=== PATIENT | female | born 1950 | race African-American/Black ===

== ENCOUNTER → 2017-12-02 | Day surgery (SDC) | payer MEDICARE, OTHER ==
[~2017-12-02] MED LIST: CAL1TABL7 PO; CERT400S SQ; CYAN2000 PO; HYDR12.53 PO; IV RINGERS,LACTATED 1000ML 1,000 ML IV SCH; LEVO75TA5 PO; LOSA100T7 PO; MULT-697 PO; PANT20TA2 PO; PROPOFOL 40 ML IV ONE; TRAM50TA PO
[2017-12-02 10:03] VITALS: BP 114/64
--- NOTE | 2017-12-02 10:55 | PREOP HP ---
DATE OF SERVICE: 12/02/2017 REQUESTING PHYSICIAN: Mello Fonseca DO. PRIMARY CARE PHYSICIAN: Mello Fonseca DO. REASON FOR PROCEDURE: Dysphagia. HISTORY OF PRESENT ILLNESS: This is a 67-year-old female with a history of dysphagia. She has been dilated by Dr. Angelica Ferguson twice in 2012. She recently had an episode of a food impaction that resolved spontaneously in [facility] ER. PAST MEDICAL HISTORY: 1. Sleep apnea. 2. Anemia. 3. Esophageal stricture. 4. Gastric bypass. FAMILY HISTORY: No colon cancer. MEDICATIONS: 1. Hydrochlorothiazide. 2. Losartan. 3. Protonix. 4. . 5. Vitamin . 6. Citracal. 7. Levothyroxine. 8. Centrum. 9. Tramadol. REVIEW OF SYSTEMS: A 13-point review of systems was done. It was positive as per HPI, otherwise negative. PHYSICAL EXAMINATION: GENERAL: She is an obese female in no apparent distress. HEENT: Oropharynx is clear. CARDIOVASCULAR: S1, S2. LUNGS: Clear. ABDOMEN: Active bowel sounds, soft, nontender, nondistended. EXTREMITIES: No edema. NEUROLOGIC: Awake, alert and oriented x 3. ASSESSMENT AND PLAN: Dysphagia. Plan for upper endoscopy with dilation. The risks and benefits of the procedure including bleeding, perforation, non-diagnosis and sedation were explained. She has agreed to proceed. Thank you for allowing me to participate in the care of this patient. SERENA MORATAYA MD DR: ANA LILIA/marc JOB#: [id number] / [id number]
--- NOTE | 2017-12-07 09:06 | PATHOLOGY ---
[facility] Accession Number: [id number] . 01 Material submitted: . PART A: SMALL BOWEL BIOPSY PART B: GASTRIC FUNDUS BIOPSY PART C: ESOPHAGEAL STENOSIS AT 34CM . 01 Clinical history: . Dysphagia . 02 Diagnosis: A. Small bowel biopsy: - Focal moderate nonspecific chronic jejunitis. . B. Gastric biopsy, fundus: - Mild to focal moderate superficial chronic gastritis. . C. Esophageal biopsy, esophageal stenosis at 34 cm: - Segments of hyperplastic squamous esophageal mucosa consistent with reflux esophagitis. [facility]/12/07/2017 . 02 Comment: Sections of the small bowel biopsy reveal two segments of small intestinal mucosa. One of the biopsy segments appears relatively normal. The other biopsy segment shows preservation of the villous architecture with moderate chronic inflammation within the lamina propria. There are focal intraepithelial lymphocytes. The histologic findings are nonspecific. Sections of the gastric fundus biopsy show [id number]-ta-thdac-moderate superficial chronic inflammation. Properly-controlled immunoperoxidase stain for Helicobacter is negative for Helicobacter organisms. Sections of the esophageal stenosis at 34 cm biopsy reveal segments of hyperplastic squamous esophageal mucosa. There are intraepithelial neutrophils and chronic inflammatory cells. The findings are consistent with reflux esophagitis. There is no evidence of Soriano's change, dysplasia, or malignancy. . Special stain (B1): Immunoperoxidase stain for Helicobacter . (JPM:mml; 12/03/17) . 02 Electronically signed: . Kenan Christensen MD, Pathologist NPI- [id number] . 01 Gross description: . A. Received in formalin labeled "Fe, Leresa, small bowel BX," are 2 segments of watson soft tissue measuring 0.7 x 0.2 x 0.2 cm in aggregate dimensions and ranging from 0.3 to 0.4 cm in maximum dimension. The specimen is submitted entirely in cassette A1. . B. Received in formalin labeled "Juanito Miramontes, gastric fundus BX," are 2 segments of watson soft tissue measuring 0.7 x 0.3 x 0.2 cm in aggregate dimensions and ranging from 0.3 to 0.4 cm in maximum dimension. The specimen is submitted entirely in cassette B1. . C. Received in formalin labeled "Juanito Miramontes, esophageal stenosis at 34 cm," are 2 segments of watson soft tissue measuring 0.8 x 0.3 x 0.2 cm in aggregate dimensions and ranging from 0.3 to 0.5 cm in maximum dimension. The specimen is submitted entirely in cassette C1. (TSD; 12/02/2017) TOB/TOB . 02 Pathologist provided ICD-10: K52.9, K29.50, K21.0 . 02 CPT . 690589, [id number], [id number], [id number] Performed at: 01 [facility] [address], [place] [id number] MD Wally Patricia MD Phone: [phone] Performed at: 02 [facility] [address] [place], [place] [id number] MD Kenan Christensen MD Phone: [phone]
== END ==
LOC: SURG 08:26
PROVIDERS: ATTEND Internal Medicine Gastroenterology
DX: K22.2 Esophageal obstruction (principal); K29.30 Chronic superficial gastritis without bleeding; K52.89 Other specified noninfective gastroenteritis and colitis; K21.9 Gastro-esophageal reflux disease without esophagitis; M06.9 Rheumatoid arthritis, unspecified; E03.9 Hypothyroidism, unspecified; I10 Essential (primary) hypertension; J45.909 Unspecified asthma, uncomplicated; G47.30 Sleep apnea, unspecified; E11.9 Type 2 diabetes mellitus without complications; E66.01 Morbid (severe) obesity due to excess calories; Z68.42 Body mass index [BMI] 45.0-49.9, adult; Z96.653 Presence of artificial knee joint, bilateral; Z96.612 Presence of left artificial shoulder joint; Z96.611 Presence of right artificial shoulder joint; Z98.51 Tubal ligation status; Z90.49 Acquired absence of other specified parts of digestive tract; Z79.899 Other long term (current) drug therapy; Z98.890 Other specified postprocedural states
CPT/HCPCS: 43239; 43249; 88305; 88342; J2704

== ENCOUNTER → 2018-03-03 | Day surgery (SDC) | payer MEDICARE, OTHER ==
[~2018-03-03] MED LIST changes: -HYDR12.53 PO; +HYDR12.575 PO; +LOSA100T14 PO; -LOSA100T7 PO; +PROPOFOL 20 ML IV ONE
--- NOTE | 2018-03-03 10:17 | PREOP HP ---
DATE OF SERVICE: 03/03/2018 DATE OF PROCEDURE: 03/03/2018 REQUESTING PHYSICIAN: Dr. Plata. PRIMARY CARE PHYSICIAN: Dr. Plata. REASON FOR PROCEDURE: Esophageal stricture and history of colon polyps. HISTORY OF PRESENT ILLNESS: This is a 67-year-old female who has a history of esophageal stricture as well as colon polyps. She is to undergo upper endoscopy and colonoscopy for further evaluation. ALLERGIES: No known drug allergies. MEDICATIONS: The MAR was reviewed. FAMILY MEDICAL HISTORY: No colon cancer. SOCIAL HISTORY: She denies alcohol, tobacco, or IV drug abuse. PAST SURGICAL HISTORY: Back surgery, gallbladder surgery, hernia surgery, joint replacement, tonsillectomy, tubal ligation, cholecystectomy. REVIEW OF SYSTEMS: A 13-point review of systems was done. It is positive as per HPI and otherwise negative. PHYSICAL EXAMINATION: VITAL SIGNS: She is afebrile and vital signs are stable. GENERAL: She is an obese -[place] female in no apparent distress. HEENT: Oropharynx is clear. CARDIOVASCULAR: S1, S2. LUNGS: Clear. ABDOMEN: Normoactive bowel sounds, soft, nontender, nondistended. EXTREMITIES: No edema. NEUROLOGIC: Awake, oriented x 3. ASSESSMENT AND PLAN: 1. Esophageal stricture. The patient is to undergo upper endoscopy for further evaluation. The risks and benefits including bleeding, perforation, non-diagnosis and sedation were explained and she has agreed to proceed. 2. History of colon polyps. The patient is to undergo colonoscopy for further evaluation. The risks and benefits including bleeding, perforation, non-diagnosis and sedation were explained and she agreed to proceed. Thank you for allowing me to participate in care of this patient. SERENA MORATAYA MD DR: ANA LILIA/marc JOB#: [id number] / [id number]
[2018-03-03 10:22] VITALS: BP 169/87
== END | disposition home or self-care (01) ==
LOC: SURG 07:54
PROVIDERS: ATTEND Internal Medicine Gastroenterology
DX: Z12.11 Encounter for screening for malignant neoplasm of colon (principal); K21.0 Gastro-esophageal reflux disease with esophagitis; K31.89 Other diseases of stomach and duodenum; K22.10 Ulcer of esophagus without bleeding; K22.2 Esophageal obstruction; K64.0 First degree hemorrhoids; K57.30 Diverticulosis of large intestine without perforation or abscess without bleeding; I10 Essential (primary) hypertension; J45.909 Unspecified asthma, uncomplicated; E11.9 Type 2 diabetes mellitus without complications; E03.9 Hypothyroidism, unspecified; M19.90 Unspecified osteoarthritis, unspecified site; G47.30 Sleep apnea, unspecified; Z90.49 Acquired absence of other specified parts of digestive tract; Z98.51 Tubal ligation status; Z96.653 Presence of artificial knee joint, bilateral; Z86.010 Personal history of colon polyps; Z79.899 Other long term (current) drug therapy; Z98.890 Other specified postprocedural states; Z96.612 Presence of left artificial shoulder joint; Z96.611 Presence of right artificial shoulder joint
CPT/HCPCS: 43239; 43248; 88305; G0105; J2704; 43249; 45378